=== PATIENT | female | born 1990 | race Caucasian/White ===

== ENCOUNTER 2021-07-11 15:04 | Emergency (ER) | payer OTHER, SELFPAY ==
[2021-07-11 15:17] VITALS: BP 115/73; PULSE 71; RESP 16; TEMP 36.8; O2SAT 98
--- NOTE | 2021-07-11 15:41 | ED.ANIMALBIT ---
HPI - Animal Bite General Chief Complaint: Animal Bite Stated Complaint: dog bite Time Seen by Provider: 07/11/21 15:29 History of Present Illness HPI narrative: 31-year-old female who was playing with a puppy that belonged to an unknown neighbor, the puppy lightly bit her on her right forearm, did not break skin, and then was behaving normally afterwards and playing with and biting a stick, the patient to go home and wash the arm, she is now concerned if she needs a rabies vaccine. No symptoms. Related Data Allergies Allergy/AdvReac Type Severity Reaction Status Date / Time No Known Allergies Allergy Verified 07/11/21 16:01 Review of Systems Review of Systems: M/S: No joint pain. SKIN: No rash. patient [facility] Past Medical History Medical History (Updated 07/11/21 @ 16:24 by Kailey Galvan MD) No active medical problems Exam Narrative: EXAMINATION OF ORGAN SYSTEMS/BODY AREAS: Constitutional: Vital signs per nursing GENERAL:[No acute distress, non-toxic appearing.] HEART: [Regular rate and rhythm] ABD: [Soft], [tender to palpation] EXT: Normal range of motion SKIN: [No rashes or lesions.] Course Course Emergency Course: Discussed case with [facility] certified nursing attendant, she states patient does not meet criteria for post-exposure prophylaxis. Recommendation is for dog to be evaluated, watched for 5 days. Discussed with patient the very low risk for rabies given the bite was not unprovoked, came from a dog that had an soap mixer, the dog was not behaving strangely, and the bite did not break the skin. Patient is reassured, she is given phone number for [facility] and counseled to find the dog to confirm vaccination status. Stable for discharge home. Vital Signs Vital signs: Vital Signs Temperature 98.2 F 07/11/21 15:17 Pulse Rate 71 07/11/21 15:17 Respiratory Rate 16 07/11/21 15:17 Blood Pressure 115/73 07/11/21 15:17 Pulse Oximetry 98 07/11/21 15:17 Oxygen Delivery Room Air 07/11/21 15:17 Temperature 98.2 F 07/11/21 15:17 Pulse Rate 71 07/11/21 15:17 Respiratory Rate 16 07/11/21 15:17 Blood Pressure 115/73 05/28/22 15:17 Pulse Oximetry 98 07/11/21 15:17 Oxygen Delivery Room Air 07/11/21 15:17 Discharge Plan Discharge Clinical Impression: Dog bite Patient Disposition: Home, Self-Care Condition: Stable Instructions: Antibiotic Form, Animal Bite (ED) Additional Instructions: Please call the [facility] at [phone]. Try to locate the dog's soap mixer if at all possible, and follow up with your doctor for any further issues. Follow-up/Referrals: PHYSICIAN,[facility] [Primary Care Provider] -
[2021-07-11] MEDS: Please add drug allergy info to patient profile. 1 EACH XX (16:17)
== END 2021-07-11 16:21 | disposition home or self-care (01) ==
PROVIDERS: Emergency Provider Emergency Medicine
DX: S51.851A Open bite of right forearm, initial encounter (principal); W54.0XXA Bitten by dog, initial encounter
CPT/HCPCS: 99282